=== PATIENT | female | born 1970 | race Caucasian/White ===

== ENCOUNTER 2023-04-16 13:50 | Emergency (ER) | payer MEDICAID ==
--- NOTE | 2023-04-16 14:31 | ED Physician Documentation ---
PD HPI HEAD INJURY - Stated complaint Stated Complaint: HEAD PX - Chief complaint Chief Complaint: Trauma Hd/Nk - History obtained from History obtained from: Patient - History of Present Illness Mechanism of head injury: Blow (struck back of head on wall TV platform when stood up quickly last evening. Posterior headache, worse today with now blurred vision and nausea. Severe headache and encompassing more diffuse now rather than just local to injury.) Where head injury occurred: Home Timing - onset: Last night Location of injury: Back Associated symptoms: Nausea / vomiting (nausea today). No: LOC Symptoms improve with: No: Rest, Meds (only moderate improved with Ibuprofen and Tylenol.) Symptoms worsen with: Palpation, Movement Contributing factors: No: Anticoagulated Similar symptoms before: Has not had sx before Recently seen: Not recently seen Review of Systems Constitutional: denies: Fever, Chills Eyes: reports: Decreased vision (blurred today) Throat: denies: Sore throat Respiratory: denies: Cough GI: reports: Nausea (today). denies: Vomiting Neurologic: reports: Headache, Head injury. 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 - Present Medications Home Medications: Ambulatory Orders Medication Instructions Recorded Confirmed No Known Home Medications 04/16/23 04/16/23 - Allergies Allergies/Adverse Reactions: Allergies Allergy/AdvReac Type Severity Reaction Status Date / Time No Known Drug Allergies Allergy Verified 04/16/23 14:27 - Social History Does the pt smoke?: No Smoking Status: Never smoker Does the pt drink ETOH?: No Does the pt have substance abuse?: No - Immunizations Immunizations are current?: Yes PD ED PE NORMAL - Vitals Vital signs reviewed: Yes - General General: Alert and oriented X 3, Well developed/nourished - HEENT HEENT: PERRL, EOMI, Other (tender posterior vertex with mild soft tissue swelling. 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, No motor deficit, No sensory deficit, Normal speech Eye Opening: Spontaneous Motor: Obeys Commands Verbal: Oriented GCS Score: 15 Results - Vitals Vitals: Vital Signs - 24 hr 04/16/23 04/16/23 14:23 15:40 Temperature 36.4 C L Heart Rate 74 74 Respiratory 16 16 Rate Blood Pressure 151/72 H 155/94 H O2 Saturation 99 99 Oxygen O2 Source Room air - Rads (name of study) jead CT Relevant Findings:: Prelim report reviewed (no ICH nor acute process), EMP independent interpretation of test PD Medical Decision Making - ED course Complexity details: considered differential (Struck her head on TV platform on the wall when she stood up. Headache at the time. Increased headache with blurred vision and nausea today with more severe headache.), d/w patient ED course: Head injury with dazed and a lot of pain yesterday at the time of impact. Increasing headache with now blurred vision and nausea. She has developing concussive type symptoms with worsening headache seems appropriate for imaging. Departure - Departure Disposition: 01 Home, Self Care Clinical Impression: Head contusion, Mild concussion Condition: Stable Record reviewed to determine appropriate education?: Yes Instructions: ED Head Injury Closed Comments: I do not see any signs of bleeding, fractures, swelling on your CT scan. You can certainly still have the headache and some mild symptoms of the nausea and blurred vision related to a mild concussive effect of the brain. Tylenol and/or ibuprofen if needed for pains. I would anticipate improvement over 2 or 3 days. Activity as tolerated during that time and the headache may increase if you are more physically active or visual activities such as nicole or videos or such. Otherwise light activity is good and recheck if not improved well over the next few days. Forms: PCP List Discharge Date/Time: 04/16/23 17:05
[2023-04-16 14:42] VITALS: O2SAT 99
[2023-04-16] MEDS: ACETAMINOPHEN 325 MG TABLET PO STA (15:12)
[2023-04-16] MEDS: IBUPROFEN 600 MG TABLET PO STA (15:14)
[2023-04-16 15:43] VITALS: BP 155/94
--- NOTE | 2023-04-16 17:04 | CT Report ---
PROCEDURE: HEAD WO INDICATIONS: head injury yest. worse headache and nausea today TECHNIQUE: Noncontrast 4.5 mm thick angled axial sections acquired from the foramen magnum to the vertex. For r adiation dose reduction, the following was used: automated exposure control, adjustment of mA and/or kV according to patient size. COMPARISON: None. FINDINGS: Image quality: Excellent. CSF spaces: Basal cisterns are patent. No extra-axial fluid collections. Ventricles are normal in size and shape. Brain: No midline shift. No intracranial masses or hemorrhage. Mays-white matter interface is norm al. Skull and face: Calvarium and visualized facial bones are intact, without suspicious lesions. Sinuses: Visualized sinuses and mastoids are clear. IMPRESSION: No acute intracranial pathology. Reviewed by: Lake Dalton MD on 04/16/2023 4:02 PM [facility] Approved by: Lake Dalton MD on 04/16/2023 4:02 PM [facility] Station ID: [id number]
== END 2023-04-16 17:05 | disposition home or self-care (01) ==
LOC: ED 13:50
DX: S06.0X0A Concussion without loss of consciousness, initial encounter (principal); S00.93XA Contusion of unspecified part of head, initial encounter; W22.8XXA Striking against or struck by other objects, initial encounter
CPT/HCPCS: 99283; 99284

== ENCOUNTER 2023-06-30 11:49 | Emergency (ER) | payer MEDICAID ==
[2023-06-30 12:05] VITALS: O2SAT 99
[2023-06-30] MEDS ORDERED: RABIES VACCINE 2.5 UNIT SYRINGE IM ONE (14:59)
[2023-06-30] MEDS ORDERED: RABIES IMMUNE GLOBULIN 300 UNITS/2 ML IM STA (14:59)
--- NOTE | 2023-06-30 16:14 | ED Physician Documentation ---
History of Present Illness - Stated complaint Stated Complaint: POST BAT EXPOSURE - Chief complaint Chief Complaint: General - Additonal information Additional information: 52 yo female Presents emergency department today for mild dizziness. Patient reports that she had awoken to a bat in her bedroom about 7 days ago. She called some sort of hotline she does not member who specifically she spoke to about the bat exposure but they did not recommend patient come in for tetanus given she had no signs or symptoms of a bat bite or scratch. She reports that the bat was not diving at her or her it was flopping around in the room after they were attempting to catch it they are able to catch it without any contact with the bat and released it. Patient said that she went to walk-in clinic today in [place] they told her that she absolutely should have presented to the emergency department for rabies immunoglobulin and rabies vaccine because of the bat exposure and sent her to the emergency department. Patient says that she is worried that she has rabies because she has been having some dizziness and fatigue over the last week or so. Patient also reports that she is recovering from an upper respiratory infection but is concerned that This generalized malaise. and mild dizziness is unrelated. 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 - Present Medications Home Medications: Ambulatory Orders Medication Instructions Recorded Confirmed Rabies Vaccine [Rabavert] 2.5 unit IM ONCE #3 ea 06/30/23 - Allergies Allergies/Adverse Reactions: Allergies Allergy/AdvReac Type Severity Reaction Status Date / Time No Known Drug Allergies Allergy Verified 06/30/23 11:52 - Social History Does the pt smoke?: No Smoking Status: Never smoker Does the pt drink ETOH?: No Does the pt have substance abuse?: No - Immunizations Immunizations are current?: Yes PD ED PE NORMAL - Vitals Vital signs reviewed: Yes - General General: Alert and oriented X 3, No acute distress, Well developed/nourished - HEENT HEENT: Atraumatic, PERRL, EOMI, Moist mucous membranes - Neck Neck: No adenopathy - Cardiac Cardiac: RRR - Respiratory Respiratory: No respiratory distress, Clear bilaterally - Derm Derm: Normal color, Warm and dry, No rash - Extremities Extremities: No deformity, No tenderness to palpate, No edema - Neuro Neuro: Alert and oriented X 3, 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 We attempted to send a prescription for the rabies vaccine to [facility] [place] but so far we are seeing that her insurance does not cover it. They are attempting a prior authorization through cover my meds and I will call the patient tomorrow as well as the pharmacy tomorrow to see if they were able to come up with a plan. Patient has been given the dates when to report back to the emergency department if the does does not end up working out. Patient given return precautions tolerated vaccine and immunoglobulin without any complications. The next vaccine that the patient should be receiving is technically July 03 which she can come to the emergency department if we are able to figure out authorization through her insurance she can follow-up with the [facility] pharmacy July 04. Thereafter she will need a vaccine on July 08 and July 15. Departure - Departure Disposition: 01 Home, Self Care Clinical Impression: Exposure to bat without known bite Condition: Good Instructions: Rabies Prescriptions: Rabies Vaccine [Rabavert] 2.5 unit IM ONCE #3 ea Comments: Thank you for trusting us With your care we have given you tetanus immunoglobulin as well as a tetanus vaccine here in the emergency department. You will receive the rest of these vaccines at the [facility] pharmacy [facility] [address] from the hospital on TuesdayJuly 04, TuesdayJuly 08, TuesdayJuly 15. Please come back to the emergency department for starting develop any shortness of breath, chest pain, nausea vomiting, dizziness, tingling or pinpricking sensation to your skin, or any other concerning symptoms. Forms: PCP List Discharge Date/Time: 06/30/23 16:25
[2023-06-30 16:38] VITALS: BP 143/81
== END 2023-06-30 16:25 | disposition home or self-care (01) ==
LOC: ED 11:49
DX: Z20.3 Contact with and (suspected) exposure to rabies (principal); Z23 Encounter for immunization
CPT/HCPCS: 90471; 96372; 99282; 99283

== ENCOUNTER 2023-07-03 09:12 | Emergency (ER) | payer MEDICAID ==
[2023-07-03 09:26] VITALS: BP 139/84; O2SAT 99
[2023-07-03] MEDS: RABIES VACCINE 2.5 UNIT SYRINGE IM ONE (09:44)
--- NOTE | 2023-07-03 09:47 | ED Physician Documentation ---
History of Present Illness - Stated complaint Stated Complaint: POST EXPOSURE - Chief complaint Chief Complaint: General - History obtained from History obtained from: Patient - Additonal information Additional information: Patient is a 52-year-old female presenting for evaluation of second dose of rabies vaccine. Patient states no significant issues after the first dose which she received on June 30.She is receiving postexposure prophylaxis after finding a bat in her home. 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 - Present Medications Home Medications: Ambulatory Orders Medication Instructions Recorded Confirmed Rabies Vaccine [Rabavert] 2.5 unit IM ONCE #3 ea 06/30/23 - Allergies Allergies/Adverse Reactions: Allergies Allergy/AdvReac Type Severity Reaction Status Date / Time No Known Drug Allergies Allergy Verified 07/03/23 09:23 - Social History Does the pt smoke?: No Smoking Status: Never smoker Does the pt drink ETOH?: No Does the pt have substance abuse?: No - Immunizations Immunizations are current?: Yes PD ED PE NORMAL - General General: Alert and oriented X 3, No acute distress, Well developed/nourished - Respiratory Respiratory: No respiratory distress - Derm Derm: Warm and dry - Neuro Neuro: Alert and oriented X 3, Normal speech, Other (Normal gait) Results - Vitals Vitals: Vital Signs - 24 hr 07/03/23 09:21 Temperature 36.7 C Heart Rate 83 Respiratory 18 Rate Blood Pressure 139/84 H O2 Saturation 99 Oxygen O2 Source Room air PD Medical Decision Making - ED course ED course: Patient here for second dose of rabies vaccine. No complaints. Patient is ambulatory. Second dose administered without issue and patient aware of when subsequent doses are due. Patient counseled on concerning symptoms to return for. Departure - Departure Disposition: 01 Home, Self Care Clinical Impression: Need for post exposure prophylaxis for rabies Condition: Stable Instructions: Rabies Comments: Today you have received the second dose in your rabies vaccine series. You will need to return on day 7 (JUN 8) and day 14 (JUN 15). Return to the emergency department with any symptoms such as difficulty breathing, rash. Forms: PCP List Discharge Date/Time: 07/03/23 09:53
== END 2023-07-03 09:53 | disposition home or self-care (01) ==
LOC: ED 09:12
DX: Z29.14 Encounter for prophylactic rabies immune globulin (principal)
CPT/HCPCS: 90471

== ENCOUNTER 2024-02-13 14:03 | Emergency (ER) | payer MEDICAID ==
[2024-02-13 14:39] VITALS: BP 170/61; O2SAT 99
--- NOTE | 2024-02-13 14:40 | ED Physician Documentation ---
History of Present Illness - Stated complaint Stated Complaint: BAT EXPOSURE - Chief complaint Chief Complaint: General - History obtained from History obtained from: Patient - Additonal information Additional information: 53-year-old female presented at the recommendation of the Department of Health after an exposure to a bat on Friday 02/09. Patient states that she was outside early in the morning, and felt a bat brushed by the back of her neck. She thinks she might of had a small abrasion because when she went into the shower she felt a stinging sensation there but there is no bleeding, and she did not notice any open wound. She recently in June of this year received a full 4 course of immunization and rig But called the health department today to see if she needed any additional vaccination and they did recommend that she be seen for a two-step booster. She otherwise feels well, denies any symptoms, and tolerated the vaccine series well last time. 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 - Present Medications Home Medications: Ambulatory Orders Medication Instructions Recorded Confirmed Multivitamin 1 each PO DAILY 02/13/24 02/13/24 - Allergies Allergies/Adverse Reactions: Allergies Allergy/AdvReac Type Severity Reaction Status Date / Time No Known Drug Allergies Allergy Verified 02/13/24 14:20 - Social History Does the pt smoke?: No Smoking Status: Never smoker Does the pt drink ETOH?: No Does the pt have substance abuse?: No - Immunizations Immunizations are current?: Yes - POLST Patient has POLST: No PD ED PE NORMAL - Vitals Vital signs reviewed: Yes - General General: Alert and oriented X 3, No acute distress, Well developed/nourished - HEENT HEENT: Atraumatic, Moist mucous membranes - Derm Derm: Normal color, Warm and dry, No rash, Other (No visible scratches, bites, or other lesions at site of exposure) Results - Vitals Vitals: Vital Signs - 24 hr 02/13/24 14:20 Temperature 36.6 C Heart Rate 87 Respiratory 18 Rate Blood Pressure 170/61 H O2 Saturation 99 Oxygen O2 Source Room air PD Medical Decision Making - ED course Complexity details: d/w patient ED course: 53-year-old female presented at the request of the health department for rabies vaccine as described in HPI. I confirmed with the health department that they recommended to start booster series on day 0 and day 3 given her prior complete immunization. Immunoglobulin is not required. The patient received first dose today and tolerated well and will return on day 3 for second and final dose of the series. Departure - Departure Disposition: 01 Home, Self Care Clinical Impression: Exposure to bat without known bite Condition: Good Comments: I talked with the health department and they recommend a 2 dose vaccine series because you have been previously vaccinated. You will need your next vaccine on , Feb 15. Forms: PCP List Discharge Date/Time: 02/13/24 15:01
[2024-02-13] MEDS: RABIES VACCINE 2.5 UNIT SYRINGE IM ONE (14:45)
== END 2024-02-13 15:01 | disposition home or self-care (01) ==
LOC: ED 14:03
DX: S10.81XA Abrasion of other specified part of neck, initial encounter (principal); W64.XXXA Exposure to other animate mechanical forces, initial encounter; Z23 Encounter for immunization
CPT/HCPCS: 90471; 99283